=== PATIENT | male | born 1965 | race Caucasian/White ===

== ENCOUNTER 2018-08-31 12:46 | Emergency (ER) | payer MEDICAID, OTHER ==
[2018-08-31] MEDS: IBUPROFEN 200 MG TAB PO (13:32)
[2018-08-31] MEDS: LORAZEPAM 1 MG TAB PO (13:33)
[2018-08-31] MEDS: ACETAMINOPHEN 325 MG TAB PO (13:33)
== END 2018-08-31 14:57 | disposition home or self-care (01) ==
LOC: FTE 12:46
DX: S80.812A Abrasion, left lower leg, initial encounter (principal); S39.92XA Unspecified injury of lower back, initial encounter; S19.9XXA Unspecified injury of neck, initial encounter; V49.09XA Driver injured in collision with other motor vehicles in nontraffic accident, initial encounter
CPT/HCPCS: 72040; 72100; 73590; 99284-25